=== PATIENT | female | born 1955 | race Caucasian/White ===

== ENCOUNTER → 2019-04-17 08:08 | Outpatient (BNVA) | payer MEDICARE, MEDICAID, SELFPAY | PROVIDERS: Family Provider Family Medicine; PCP Family Medicine; Visit Provider Nurse Practitioner Psychiatric/Mental Health | DX: F33.0 Major depressive disorder, recurrent, mild (principal); F41.1 Generalized anxiety disorder; F43.12 Post-traumatic stress disorder, chronic; Z63.4 Disappearance and death of family member | CPT/HCPCS: 99214 ==

== ENCOUNTER → 2019-08-08 08:09 | Outpatient (BNVA) | payer MEDICARE, MEDICAID, SELFPAY | PROVIDERS: Family Provider Family Medicine; PCP Family Medicine; Visit Provider Nurse Practitioner Psychiatric/Mental Health | DX: F33.0 Major depressive disorder, recurrent, mild (principal); F41.1 Generalized anxiety disorder; F43.12 Post-traumatic stress disorder, chronic; Z63.4 Disappearance and death of family member | CPT/HCPCS: 99214 ==

== ENCOUNTER → 2019-08-31 08:16 | Day surgery (SDC) | payer MEDICARE, MEDICAID, SELFPAY ==
[2019-08-30 14:47] VITALS: BMI 30.8
[2019-08-31 08:44] VITALS: BP 114/68; PULSE 89; RESP 18; TEMP 36.6; O2SAT 96
[2019-08-31] MEDS: sodium chloride 0.9% 1,000 ML 30 ML IV (08:48)
--- NOTE | 2019-08-31 09:27 | ANES.PREANE2 ---
Pre-Anesthetic Assessment Pre-Anesthetic Assessment: Height/Weight: Height 1.6 m Weight 78.925 kg Temp Pulse Resp BP Pulse Ox 98 F 89 18 114/68 96 08/31/19 08:44 08/31/19 08:44 08/31/19 08:44 08/31/19 08:44 08/31/19 08:44 Preop Diagnosis: lumbar spinal stenosis Proposed Procedure: Operation Date: 08/31/19 09:30 Proposed Procedures p Dorsal Column Stimulator Insertion 37448 M48.062(Not Applicable) - Chris Landa MD Familial anesthetic complications: awareness during her hysterectomy - could hear everything before they intubated her Last intake: Intake Last Liquid Date 08/30/19 Last Solid Date 08/30/19 Social: Social History: No alcohol and No tobacco Exam: Pre-Anes Outpt Exam: alert, oriented x 3, clear to auscultation bilaterally and regular rate & rhythm Airway: Cervical ROM: WNL MP: 2 Dentition: Chipped and Full Pulmonary: Pulmonary: COPD : : None reported Hepatic: Hepatic: None reported GI: GI: None reported Metabolic: Metabolic: None reported Musc/skel: Musc/skel: None reported Neuropsych: Neuropsych: None reported Anesthetic Plan: ASA status: 2 Anesthesia: MAC Other: Patient informed of risk for awareness again during MAC Risk of > 500 ml blood loss (7ml/kg in children): No Meds/Allergies Current Medications: Current Medications Generic Name Dose Route Start Last Admin Trade Name Freq PRN Reason Stop Dose Admin Sodium Chloride 1,000 mls @ 30 ml s/hr 08/31/19 08:15 08/31/19 08:48 Sodium Chloride 0.9% IV 09/01/19 08:14 30 mls/hr .Q24H ANDERSON Administration PFSH Anesthesia PFSH: Medical History Generalized anxiety disorder Major depressive disorder, recurrent, mild Post-traumatic stress disorder, chronic Spinal stenosis, lumbar region, with neurogenic claudication Spondylolisthesis, lumbar region Surgical History H/O repair of rotator cuff History of hysterectomy S/P cervical spinal fusion C6-7 ACDFF, Dr Landa 2009 Social History (Updated 07/25/19 @ 13:00 by Kylah Mishra LPN) Smoking and tobacco status: former smoker Alcohol intake: never Lives independently: Yes Marital status: Current occupational status: disabled History of recent travel: No Data Anesthesia Cardiac Studies: No Data to Display
[2019-08-31 10:04] LABS: Amphetamines Screen Urine Positive (Negative); Barbiturates Screen Urine Negative (Negative); Benzodiazepines Screen Urine Positive (Negative); Cocaine Screen Urine Negative (Negative); Opiate Screen Urine Positive (Negative); PCP Screen Urine Negative (Negative); THC Screen Urine Negative (Negative)
--- NOTE | 2019-08-31 13:43 | SUR.PREOP ---
surgery postponed due to urine drug test results
--- NOTE | 2019-09-07 | XR_ITS ---
WS: [id number] C-ARM RADIOGRAPHS THORAX; 2 IMAGES HISTORY: dcs placement COMPARISON: None available. Intraoperative imaging during dorsal column stimulator placement. Stimulator projects over the T7-T8 vertebral bodies. XR/XR thoracic spine 1ort [id number] IMPRESSION: Intraoperative imaging during dorsal column stimulator placement.
== END ==
PROVIDERS: Anesthesiology; PCP Family Medicine; Visit Provider Specialist
DX: M48.061 Spinal stenosis, lumbar region without neurogenic claudication (principal); Z53.09 Procedure and treatment not carried out because of other contraindication
CPT/HCPCS: 72020; 80306; 96365; J7030

== ENCOUNTER 2019-09-01 16:11 | Emergency (ER) | payer MEDICARE, MEDICAID, SELFPAY ==
[2019-09-01 16:41] VITALS: BP 101/63; PULSE 79; RESP 18; TEMP 36.7; O2SAT 96; BMI 29.5
--- NOTE | 2019-09-01 17:57 | W.ED.BACK ---
HPI - Back Pain/Injury General: Chief Complaint: Back Pain/Injury Stated Complaint: acute on chronic back pain Time Seen by Provider: 09/01/19 17:56 Source: patient Mode of arrival: ambulatory Limitations: no limitations History of Present Illness: HPI Narrative: Patient comes in with increased back pain and difficulty sleeping at night for the last 3 days. Patient has chronic back pain and routinely sees Dr. Downing for pain specialist, Dr. Ashley for primary care. Patient was supposed to see Dr. Landa and have further treatment but tested positive for a amphetamine and was recommended and could not have surgery done for a what she calls a paddle or nerve stimulator. Patient is ambulatory and appears well complaints of right-sided low back pain. Review of Systems General: Reports: 10 or more systems reviewed and unremarkable except in HPI and below Musc: Reports: back pain PFS ED PFSH: Medical History (Updated 09/01/19 @ 18:06 by KASSIE Bhandari) Generalized anxiety disorder Major depressive disorder, recurrent, mild Post-traumatic stress disorder, chronic Spinal stenosis, lumbar region, with neurogenic claudication Spondylolisthesis, lumbar region Surgical History H/O repair of rotator cuff History of hysterectomy S/P cervical spinal fusion C6-7 ACDFF, Dr Landa 2009 Social History (Updated 07/25/19 @ 13:00 by Kylah Mishra LPN) Smoking and tobacco status: never smoked Alcohol intake: never Lives independently: Yes Marital status: Current occupational status: disabled History of recent travel: No Physical Exam Const: COMMON NORMALS: no acute distress and patient oriented x3 GENERAL APPEARANCE: cooperative HENMT: COMMON NORMALS: normocephalic, TM's normal bilaterally and Normal external nose present HEAD & SCALP: normal to inspection and normocephalic NOSE: Normal external nose present TYMPANIC MEMBRANE: TM's normal bilaterally MOUTH: Normal oral and palatal mucosa present THROAT: posterior oropharynx normal Eye: GENERAL EYE: appearance normal, both eyes and all related structures Neck/C-Spine: COMMON NORMALS: full ROM Lymph: LYMPHATIC: no lymphadenopathy noted Chest: COMMONS NORMALS: normal inspection of the chest Resp: COMMON NORMALS: normal respiratory effort EFFORT & INSPECTION: Yes able to speak in complete sentences Cardio: COMMON NORMALS: regular rate and regular rhythm RATE: regular rate RHYTHM: regular rhythm GI: COMMON NORMALS: non-tender : COMMON NORMALS: Yes no CVA tenderness BLADDER/KIDNEY EXAM: Yes no CVA tenderness Back/Pelvis: COMMON NORMALS: no CVA tenderness and thoracic and lumbar spine normal to inspection Extremity: COMMON NORMALS: normal to inspection Neuro: COMMON NORMALS: patient oriented x3 and moves all extremities Psych: COMMON NORMALS: mental status grossly normal and cooperative Skin: COMMON NORMALS: no rashes or lesions noted GENERAL SKIN EXAM: no rashes or lesions noted Course Vital Signs: Vital signs: Vital Signs Temperature 98.1 F 09/01/19 16:41 Pulse Rate 79 09/01/19 16:41 Respiratory Rate 18 09/01/19 16:41 Blood Pressure 101/63 09/01/19 16:41 Pulse Oximetry 96 09/01/19 16:41 MDM - Back Pain/Injury MDM Narrative: Medical decision making narrative: Patient comes in for increased back pain. On exam patient appears well. Patient has some muscle tightness and tenderness in the right lower back. Patient is ambulatory. Vital signs are normal. Differential diagnosis includes lumbar radiculopathy, facet arthropathy, intervertebral disc disease. Reviewed exam with patient recommended treatment with a dose of dexamethasone for inflammation. Encourage continuing routine medications as directed and to only take medications as ordered. Patient reported understanding agreed to plan with recommendations for follow-up with primary care and specialist. Discharge Plan Discharge Patient Disposition: Home, Self-Care Clinical Impression: Spondylolisthesis, lumbar region Condition: Stable Prescriptions: No Action budesonide-formoterol [Symbicort] 80-4.5 mcg/actuation HFA aerosol inhaler 2 puff INHALATION BID RF: 0 cyclobenzaprine 10 mg tablet 10 mg PO BID RF: 0 melatonin 5 mg capsule 10 mg PO .QHS RF: 0 methocarbamol 750 mg tablet 750 mg PO .QHS RF: 0 naproxen 500 mg tablet 500 mg PO DAILY PRN (Reason: Pain) RF: 0 gabapentin 300 mg capsule 400 mg PO TID RF: 0 estradiol [Vivelle-Dot] 0.1 mg/24 hr patch semiweekly 1 patch TRANSDERMA .twice weekly RF: 0 hydrocodone-acetaminophen 7.5-325 mg tablet 1 tab PO Q6H PRN (Reason: pain) RF: 0 albuterol sulfate [Ventolin HFA] 90 mcg/actuation HFA aerosol inhaler 1 inh INHALATION ONCE RF: 0 Cosentyx 150 mg/mL syringe 150 mg SUBCUT .monthly RF: 0 Linzess 290 mcg capsule 290 mcg PO QAM RF: 0 bupropion HCl [Wellbutrin XL] 300 mg tablet extended release 24 hr 300 mg PO QAM Qty: 90 RF: 2 topiramate [Topamax] 100 mg tablet 100 mg PO QAM Qty: 90 RF: 2 diazepam [Valium] 10 mg tablet 10 mg PO TID PRN (Reason: anxiety) Qty: 90 RF: 3 Incruse Ellipta 62.5 mcg/actuation blister with device 1 mcg INHALATION BEDTIME RF: 0 Discharge Orders: Discharge Order (Routine); Ordered 09/01/19 Ordered By: Aman Freeman Referrals: Yani Ashley MD [Primary Care Provider] - Discharge Diet: Usual diet Discharge Activity: Increase activity as tolerated Patient Instructions: Back Pain (ED) Activity Restrictions/Additional Instructions: Increase activity as tolerated. Gentle stretching and range of motion exercises. Drink plenty of water with medications. Continue routine medications as directed. You were given a dose of dexamethasone which will help decrease inflammation and hopefully help improve the symptoms you are having. Follow-up with Dr. Landa's office for rescheduling of appointment and further treatment. Return to the ER for high fever or worsening symptoms. Coding Level of Care Code ED [employer] Consultant for Cate Hamilton Exam Comprehensive
[2019-09-01] MEDS: orphenadrine 30 mg/mL Inj 2 mL 60 MG IM (19:40)
[2019-09-01] MEDS: ketorolac 30 mg/mL INJ IM (19:40)
[2019-09-01] MEDS: dexamethasone 10 mg/mL INJ IM (19:43)
[2019-09-01 19:56] VITALS: BP 104/68; PULSE 78; RESP 18; O2SAT 99
--- NOTE | 2019-09-01 20:01 | PC.NURSE ---
PAtient assessment reviewed and verified by RN
--- NOTE | 2019-09-05 09:40 | DCPLANNER ---
Patient is to follow up with Dr. Landa. marketing programs manager called the office of Dr. Landa, spoke with [place], gave clinic patients information. marketing programs manager was told that patients information would be printed and given to Rich for review. Clinic will call case management specialist and patient with appointment information.
--- NOTE | 2019-09-08 13:27 | DCPLANNER ---
Patient has a follow up appointment scheduled for patient with Dr. Landa on , September 21, 2019 at 9:00. Clinic will call patient with appointment information.
--- NOTE | 2019-09-28 13:26 | DCPLANNER ---
Patient attended appointment scheduled for 09.21.[address] Landa.
== END 2019-09-01 19:56 | disposition home or self-care (01) ==
PROVIDERS: Emergency Provider Nurse Practitioner Family; PCP Family Medicine
DX: M43.16 Spondylolisthesis, lumbar region (principal)
CPT/HCPCS: 12345; 96372; 99281; 99283; J1100; J1885; J2360

== ENCOUNTER 2019-09-03 12:46 | Emergency (ER) | payer MEDICARE, MEDICAID, SELFPAY ==
[2019-09-03 12:47] VITALS: BP 108/69; PULSE 82; RESP 18; TEMP 36.7; O2SAT 93; BMI 29.5
[2019-09-03 12:56] VITALS: BP 108/69; PULSE 82; RESP 18; O2SAT 95
--- NOTE | 2019-09-03 13:17 | ED_ITS ---
HPI - Back Pain/Injury General: Chief Complaint: Back Pain/Injury Stated Complaint: BACK PAIN Time Seen by Provider: 09/03/19 12:54 History of Present Illness: HPI Narrative: Patient is a 63-year-old female who presents by ambulance today. She called the ambulance due to back pain. She has had back pain she said for years but has a different type of back pain now since May. She sees Dr. Downing for pain management and she is on gabapentin, hydrocodone, Flexeril. She also has prescriptions for diazepam and methocarbamol. She also takes Naprosyn. She was scheduled for surgery with Dr. Landa to have what sounds like a spinal stimulator placed. That was scheduled for but she tested positive for amphetamine and the surgery was canceled. She said she had taken a Phentermine diet pill. She tells me she took a hydrocodone and a Flexeril at 6 AM today. she says she has not taken any other pain medicine today. I asked her what we could do to help and she said she wanted pain medicine. I asked her why she did not take her own pain medicine and she said she does not like to take it too many times a day. She is allowed to take it up to 4 times a day but only takes it twice. She said that when she is at home she sleeps on her couch which has a footstool. She said as long as she sleeps like that she does not wake up with back pain. Since she has been staying with her daughter due to her scheduled surgery she has been sleep ing on a regular soft mattress and is waking up with pain. We discussed how it may be she could sleep on the couch with a footstool as she does at home in order to control her symptoms. elicited complaint: back pain Pertinent past history: prior back pain Onset (ago): year(s) Timing: constant Severity: severe Similar Symptoms Previously: Yes Quality: sharp Location: lumbar spine and right lower back Associated symptoms: Reports no associated symptoms; Deny difficulty walking Review of Systems Musc: Reports: back pain Neuro: Denies: numbness in extremities, weakness in extremities, lack of coordination, difficulty walking, frequent falls or dizziness [facility] ED PFSH: Medical History Generalized anxiety disorder Major depressive disorder, recurrent, mild Post-traumatic stress disorder, chronic Spinal stenosis, lumbar region, with neurogenic claudication Spondylolisthesis, lumbar region Surgical History H/O repair of rotator cuff History of hysterectomy S/P cervical spinal fusion C6-7 Dr Cordell ANGEL 2009 Social History Smoking and tobacco status: current every day smoker Alcohol intake: never Lives independently: Yes Marital status: Current occupational status: disabled History of recent travel: No Physical Exam Const: COMMON NORMALS: no acute distress, patient oriented x3, no limitations and alert GENERAL APPEARANCE: cooperative and comfortable HENMT: HEAD & SCALP: normal to inspection FACE & SINUS: normal facial exam Eye: GENERAL EYE: appearance normal, both eyes and all related structures Neck/C-Spine: COMMON NORMALS: supple, no meningeal signs and no JVD Chest: COMMONS NORMALS: normal inspection of the chest Resp: COMMON NORMALS: normal respiratory effort, No use of accessory muscles and clear to auscultation bilaterally AUSCULTATION: clear to auscultation bilaterally Cardio: COMMON NORMALS: no JVD, regular rate, regular rhythm and No murmurs present (Cardio) RATE: regular rate RHYTHM: regular rhythm GI: COMMON NORMALS: Normal to inspection, nondistended, normoactive bowel sounds present, Soft to palpation and non-tender INSPECTION: Yes normal to inspection AUSCULTATION: Yes normoactive bowel sounds PALPATION: Yes Soft to palpation Back/Pelvis: COMMON NORMALS: thoracic and lumbar spine normal to inspection Extremity: COMMON NORMALS: normal to inspection Neuro: COMMON NORMALS: patient oriented x3, moves all extremities, no focal motor deficits and no sensory deficits noted SENSORIUM/ORIENTATION: Yes alert MENINGEAL SIGNS: Yes no meningeal signs MOTOR EXAM: 5/5 motor strength present throughout DEEP TENDON REFLEXES: Right patellar reflex intensity grade: 2+ and Left patellar reflex intensity grade: 2+ Psych: COMMON NORMALS: mental status grossly normal, cooperative and normal affect Skin: COMMON NORMALS: no rashes or lesions noted and turgor normal GENERAL SKIN EXAM: no rashes or lesions noted and turgor normal Course ED course: Patient has pain medication at home that she did not take. She instead called the ambulance to come in. She told me that the pain medicine wo rks when she takes it. She also knows of a comfortable sleeping position that does not cause her back pain. We discussed how she might be able to adapt her daughter's couch to let her sleep like that. She says that she came in because she wants to have her back surgery. It is Wednesday and Dr. Landa is not on-call today nor would this be an emergent reason for surgery. I am going to discharge her home with instructions to follow-up with Dr. Downing and Dr. Landa. Reevaluation(s): Reevaluation #1: The patient was not happy with my treatment decisions. I went back to talk to her again prior to discharge and she would not speak to me. Time: 14:51 Vital Signs: Vital signs: Vital Signs Temperature 98.0 F 09/03/19 12:47 Pulse Rate 73 09/03/19 13:30 Respiratory Rate 16 09/03/19 13:30 Blood Pressure 94/73 09/03/19 13:30 Pulse Oximetry 96 09/03/19 13:30 MDM - Back Pain/Injury MDM Narrative: Medical decision making narrative: Chronic back pain. No new neuro findings. She said the pain in her right lower back is new but then she also told me that it was the pain for which she was going to have the procedure. She has follow-up with pain management as well as neurosurgery. She has quite a selection of medication to manage pain at home. We discussed non- pharmacological treatment of back pain. I do not think she needs any further work-up in the ED today. She said she got a steroid shot last time she was here but I do not think that is appropriate to repeat today. Discharge Plan Discharge Patient Disposition: Home, Self-Care Clinical Impression: Chronic back pain Qualifiers: Back pain location: low back pain Back pain laterality: right Sciatica presence: without sciatica Qualified Code(s): M54.5 - Low back pain Condition: Stable Prescriptions: No Action budesonide-formoterol [Symbicort] 80-4.5 mcg/actuation HFA aerosol inhaler 2 puff INHALATION BID RF: 0 cyclobenzaprine 10 mg tablet 10 mg PO BID RF: 0 melatonin 5 mg capsule 10 mg PO .QHS RF: 0 methocarbamol 750 mg tablet 750 mg PO .QHS RF: 0 naproxen 500 mg tablet 500 mg PO DAILY PRN (Reason: Pain) RF: 0 gabapentin 300 mg capsule 400 mg PO TID RF: 0 estradiol [Vivelle-Dot] 0.1 mg/24 hr patch semiweekly 1 patch TRANSDERMA .twice weekly RF: 0 hydrocodone-acetaminophen 7.5-325 mg tablet 1 tab PO Q6H PRN (Reason: pain) RF: 0 albuterol sulfate [Ventolin HFA] 90 mcg/actuation HFA aerosol inhaler 1 inh INHALATION ONCE RF: 0 Cosentyx 150 mg/mL syringe 150 mg SUBCUT .monthly RF: 0 Linzess 290 mcg capsule 290 mcg PO QAM RF: 0 bupropion HCl [Wellbutrin XL] 300 mg tablet extended release 24 hr 300 mg PO QAM Qty: 90 RF: 2 topiramate [Topamax] 100 mg tablet 100 mg PO QAM Qty: 90 RF: 2 diazepam [Valium] 10 mg tablet 10 mg PO TID PRN (Reason: anxiety) Qty: 90 RF: 3 Incruse Ellipta 62.5 mcg/actuation blister with device 1 mcg INHALATION BEDTIME RF: 0 Referrals: Yani Ashley MD [Primary Care Provider] - Discharge Diet: Usual diet Discharge Activity: Resume usual activity Patient Instructions: Acute Low Back Pain (ED) Activity Restrictions/Additional Instructions: Follow-up with your spray painter helper. Coding Level of Care Code ED Carbider for Cate Fwd Exam Comprehensive
[2019-09-03 13:30] VITALS: BP 94/73; PULSE 73; RESP 16; O2SAT 96
[2019-09-03 15:01] VITALS: BP 104/55; PULSE 68; RESP 16; O2SAT 100
== END 2019-09-03 15:02 | disposition home or self-care (01) ==
PROVIDERS: Emergency Provider Emergency Medicine; PCP Family Medicine
DX: G89.29 Other chronic pain (principal); M54.5 Low back pain; F17.210 Nicotine dependence, cigarettes, uncomplicated
CPT/HCPCS: 12345; 99282

== ENCOUNTER 2019-09-07 10:32 | Observation (INO) | payer MEDICARE, MEDICAID, SELFPAY ==
[2019-09-07] VITALS (17 sets, daily range): BP systolic 90–126; BP diastolic 55–79; PULSE 77–93; RESP 14–18; TEMP 36.4–36.8; O2SAT 93–100; BMI 29.5
--- NOTE | 2019-09-07 | SCC_ITS ---
Procedure Done: 1. Thoracic laminotomy with placement of intraspinal, epidural paddle electrode arrays. 2. Placement of subcutaneous programmable pulse generator. 14.9 seconds of fluoroscopic guidance, for a cumulative dose of 13.74 mGy, was provided to Dr. Landa by the radiology department. C-arm images of the thoracic spine were saved for the patient's permanent record. [facility]
[2019-09-07 07:18] LABS: Amphetamines Screen Urine Negative (Negative); Barbiturates Screen Urine Negative (Negative); Benzodiazepines Screen Urine Positive (Negative); Cocaine Screen Urine Negative (Negative); Opiate Screen Urine Positive (Negative); PCP Screen Urine Negative (Negative); THC Screen Urine Negative (Negative)
[2019-09-07] MEDS: sodium chloride 0.9% 1,000 ML 30 ML IV (07:32)
[2019-09-07] MEDS: vancomycin 1,000 MG in sodium chloride 0.9% 250 ML 250 MG IV (07:33)
--- NOTE | 2019-09-07 07:40 | W.PM.OPSUD ---
Surgery/Procedure H&P Update DATE OF PROCEDURE: September 07, 2019 DATE H&P PERFORMED: 08/28/19 H&P UPDATE INFORMATION: I have reviewed H&P completed within last 30 days and H&P to be scanned into chart PREOP DIAGNOSIS: Lumbar Spinal Stenosis PRIMARY INDICATION FOR PROCEDURE: Pain PLANNED PROCEDURE: Operation Date: 09/07/19 08:00 Proposed Procedures Spinal Cord Stimulator Insertion via Thoracic laminotomy/laminectomy, placement of subcutaneous programmable pulse generator ([id number]) spinal stenosis, lumbar region, with neurogenic claudication (M48.062)(Not Applicable) - Chris Landa MD
--- NOTE | 2019-09-07 07:55 | P.OP_ITS ---
Brief Operative Note: Date of procedure: 09/07/19 Pre-op diagnosis: Lumbar spinal stenosis Post-op diagnosis: same Procedure Done: Thoracic laminotomy for placement of intraspinal epidural paddle electrode arrays. Placement of subcutaneous programmable pulse generator. Surgeon: Chris Landa Estimated blood loss (mL): 10 Complications: None. Post-op Plan: PACU, then ornelas. Condition: stable Disposition: PACU Coding Level of Care Code Acute Supervisor Customer Records Division for Cate Hamilton
[2019-09-07] MEDS: thrombin 5,000 unit SDV 5000 UNIT XX (08:49)
--- NOTE | 2019-09-07 09:45 | SUR.OPER ---
Family Notified Of Patient's Status Via Phone.
--- NOTE | 2019-09-07 11:11 | PC.CHAP ---
Pastoral Care Encounter/Spiritual Assessment Type of Contact [] Declined entomology professor visit [] Patient/Family/Request visit [] Outpatient visit [] Follow-up visit [] Physician referral [] Code/Alert [x] Routine visit [] Staff referral [] Actively dying [] Patient sleeping [] Family support [] [] Out of room [] Palliative care [] [] Receiving care in room [] Pre-surgical visit [] Trauma [] Long length of stay [] ICU visit [] Other: Relational/Emotional Strength [x] Patient feels connected with others/family/visitors/staff [] Distress [] Loneliness/isolation [] Abandonment Spirituality of Patient [x] Person of Herlinda [x] Attends Holiness of their Herlinda [x] Believes in Prayer [x] Reads Bible or Yarsanism materials [] There are Spiritual issues to be addressed Cotton Picker Interventions [x] Prayer [x] Active listening [x] Non-anxious presence [x] Spiritual/emotional support [] Crisis/trauma care [x] Spiritual counseling [] Bereavement support [] Provided bereavement packet [] Provided Bible/devotional materials [] Provided toy/stuffed animal, coloring book to patient or family member [] Provided Communion [] Anointing/[place] [] Salvation [x] Completed spiritual assessment [] Other: Impact on Illness or Injury [] Angry [] Fearful [] Anxious [] Often cries [] Exhaustion [] Unable to work [] Unable to attend mandaeism [] Unable to walk/stand [] Unable to read [] Unable to drive [] Unable to eat/drink [] Unable to sleep [] Unable to be with family [] Patient intubated [x] Other: n/a Summary Patient is strong in her herlinda to [employer]. Time spent with patient 10 minutes
[2019-09-07] MEDS: HYDROcodone-acetaminophen 10-325 mg Tablet 1 TAB PO ×3 (11:37→18:19)
[2019-09-07] MEDS: lactated ringers 1,000 ML 90 ML IV (11:39)
[2019-09-07] MEDS: HYDROmorphone 1 mg/mL INJ 1 mL 0.5 MG IVP ×2 (11:39→13:19)
--- NOTE | 2019-09-07 13:00 | P.OP_ITS ---
Operative Report Date of procedure: September 07, 2019 Pre-op Diagnosis: Lumbar Spinal Stenosis Post-op diagnosis: same Procedure Done: 1. Thoracic laminotomy with placement of intraspinal, epidural paddle electrode arrays. 2. Placement of subcutaneous programmable pulse generator. Implants: [employer] CoverEdge 32, 70 cm, 4 x 8 surgical brace maker. [employer] Spectra WaveWriter pulse generator. Pathology: none sent Surgeon: Crhis Landa Anesthesia: MAC Estimated blood loss (mL): 10 IV fluids (mL): 700 Complications: None. Condition: stable Disposition: PACU Brief History: The patient is a 63-year-old female. She has symptomatic, radiographically confirmed lumbar disc/joint disease, with associated spondylolisthesis and spinal stenosis. She complained of low back and hip pain, right > left. Her workup included thoracic and lumbar spine imaging. Conservative treatment trials failed to provide adequate lasting symptom relief. She obtained marked relief of chronic pain during a percutaneous trial of thoracic spinal cord stimulation. After review of the diagnostic and treatment options with the risks/potential benefits/rationale for each, the patient requested to proceed with placement of epidural paddle electrode arrays and a subcutaneous programmable pulse generator for chronic spinal cord stimulation therapy. Procedure: After routine preoperative evaluation and informed consent were obtained, the patient was taken to the Operating Room and positioned prone on the operating table. Chest and pelvic bolsters were positioned to ensure the abdomen was decompressed. All pressure points were padded. The patient reported the position to be comfortable. She was maintained under varying levels of intravenous sedation by Anesthesia personnel. The planned right flank pulse generator placement incision was marked with a skin marker. A planned midline posterior thoracic incision was likewise marked, after intraoperative localization with fluoroscopy. The patient's lead location during the successful percutaneous trial was utilized to guide placement for the permanent implant. The posterior thorax and flank areas were scrubbed with Betadine and prepped with DuraPrep. Sterile towels and drapes were applied, and an [place] surgical barrier was plac ed. The proposed midline posterior thoracic incision was infiltrated with 1% Xylocaine with epinephrine. A skin incision was made and carried down into the subcutaneous tissues. The deep fascial plane was identified and divided in the midline. A right-sided subperiosteal dissection was carried down along the lamina at what appeared by intraoperative fluoroscopy to be T8/T9. Deep self- retaining retractors were placed to maximize the operative exposure. A laminotomy was fashioned with Jacindaon rongeurs. Ligamentum flavum was resected at the base of the laminotomy site. The hockey-stick dural separator was advanced into the dorsal epidural space, with some resistance to midline placement encountered. The [employer] CoverEdge 32 surgical brace maker was then advanced into the dorsal epidural space. Intraoperative fluoroscopy suggested a mildly angled dorsal epidural lead position, with the cephalad extent of the lead approximating the top of T7. Anesthesia personnel diminished the patient's sedation until she was awake and conversant. The lead tails were connected to extension cables, and intraoperative spinal cord stimulation was performed. The patient reported good paresthesia coverage of her chronic pain sites. Lead impedances were good. The patient's sedation was deepened. The wound was copiously irrigated with sterile saline and antibiotic irrigation. The fascia was closed utilizing 2-0 Vicryl Plus in a simple interrupted fashion. CLIK lead anchors were placed over 2 of the 4 lead tails, and secured at the fascial entry point with Fixate suture devices. The lead - anchor - fascial interfaces were manipulated and found to be secure. Intraoperative fluoroscopy verified a stable lead position. Strain relief loops of the lead tails were fashioned within the subcutaneous space at the thoracic incision site. The right flank incision site was prepared by infiltration with 1% Xylocaine with epinephrine. An incision was then made, and a subcutaneous pocket was created of adequate size to accommodate the pulse generator. The subcutaneous tunneling tool was utilized to create a subcutaneous passage between the thoracic and right flank incisions. Lead tails were advanced through the subcutaneous tunnel utilizing the tunneling tool. The lead tails were advanced into the appropriate ports on the [employer] Spectra WaveWriterr pulse generator. An imped ance check demonstrated no lead faults. The connection sites were secured with set screws and the torque wrench. The connection sites were manipulated and found to be secure. The right flank subcutaneous pocket and the thoracic incision site were copiously irrigated with antibiotic irrigation. Hemostasis was ensured. The pulse generator was placed within the right flank subcutaneous pocket, with excess lead coiled deep/adjacent to the device. The pulse generator was anchored to the superficial fascia with a single Silk suture. The site was again irrigated with antibiotic irrigation. Wound closure was performed in multiple layers with 2-0 Vicryl Plus simple interrupted closure of the dermis at both sites. Intraoperative fluoroscopy verified a stable lead position. Final skin closure was performed at both incision sites with 3-0 Vicryl Plus in a running subcuticular pattern. Steri-Strips were applied, and sterile dressings were placed. The patient was then rotated onto the Recovery Room cart in the supine position. She tolerated the procedure well. All sponge, needle and instrument counts were correct at the completion of the procedure.
[2019-09-07] MEDS: gabapentin 400 mg Capsule PO ×2 (15:16→20:38)
[2019-09-07] MEDS: morphine 4 mg/mL SDV 1 mL 2 MG IVP (15:18)
--- NOTE | 2019-09-07 17:00 | PC.NURSE ---
CBI Patient had 1500ml of CBI instilled with 1800ml out, patient has strawberry-mendoza colored urine, bladder irrigated once due to fullness feeling and got small amount of blood clots. Patient stated he had relief of pressure after irrigation. CBI continues at moderate flow, will continue to monitor at this time.
[2019-09-07] MEDS: docusate sodium 100 mg Capsule PO (17:42)
[2019-09-07] MEDS: ketorolac 30 mg/mL INJ 15 MG IVP (17:43)
[2019-09-07] MEDS: cyclobenzaprine 10 mg Tablet PO (17:43)
[2019-09-07] MEDS: methocarbamol 750 mg Tablet PO (20:38)
--- NOTE | 2019-09-07 23:10 | PM.PN ---
Subjective Subjective: Interval history: Sore. Medications: Reviewed: Yes Vitals/I&O/Wt Last Vital Signs Temp 98.0 F 09/07/19 19:35 Pulse 78 09/07/19 19:35 Resp 18 09/07/19 19:35 BP 90/55 09/07/19 19:35 Pulse Ox 93 09/07/19 19:35 09/07/19 09/07/19 09/08/19 14:59 22:59 06:59 Intake Total 660 / 660 410 / 1070 Output Total 1000 / 1010 Balance 650 / 650 -590 / 60 Weight last 48 hrs Weight 167 lb Physical Exam Const: COMMON NORMALS: no acute distress GENERAL APPEARANCE: cooperative and comfortable Neck/C-Spine: COMMON NORMALS: supple Resp: COMMON NORMALS: normal respiratory effort EFFORT & INSPECTION: No tachypneic Back/Pelvis: BACK IMAGE (FEMALE): 1. Surgical site dressing 2. Surgical site dressing Extremity: COMMON NORMALS: no clubbing, cyanosis or edema Neuro: COMMON NORMALS: moves all extremities Psych: COMMON NORMALS: mental status grossly normal and speech normal ATTITUDE: Yes calm and Yes engaged ACTIVITY/MOTOR BEHAVIOR: Yes appropriate eye contact SPEECH: Yes normal speech MOOD & AFFECT: Yes euthymic mood Skin: WOUNDS: Yes surgical site (Surgical sites without erythema or active drainage. Dressings changed.) Data Other Xray: Radiologist's impression: Intraoperative imaging during dorsal column stimulator placement. Stimulator projects over the T7-T8 vertebral bodies. A&P Assessment and plan (1) Spinal stenosis, lumbar region, with neurogenic claudication: Patient is doing well after thoracic spinal cord stimulator implantation performed earlier today. Plan completion of postop IV antibiotic doses, with discharge home in AM. Status: Acute Attestations Medical Necessity Statement*: Patient is appropriate for in-hospital management following surgical intervention for spinal cord stimulator placement earlier today. Coding Level of Care Code Acute Training Intern for [facility] Fwd Exam Detailed Diagnoses Spinal stenosis, lumbar region, with neurogenic claudication M48.062 Comment postop global
[2019-09-08] VITALS (8 sets, daily range): BP systolic 97–120; BP diastolic 64–72; PULSE 76–107; RESP 14–18; TEMP 36.9–38.4; O2SAT 94–97
[2019-09-08] MEDS: lactated ringers 1,000 ML 90 ML IV (00:02)
[2019-09-08] MEDS: HYDROcodone-acetaminophen 10-325 mg Tablet 1 TAB PO ×2 (01:15→06:29)
[2019-09-08] MEDS: topiramate 100 mg Tablet PO (06:29)
[2019-09-08] MEDS: buPROPion XL (24 HR) 300 mg Tablet PO (06:29)
[2019-09-08] MEDS: acetaminophen 325 mg Tablet 650 MG PO (07:52)
[2019-09-08] MEDS: docusate sodium 100 mg Capsule PO (07:52)
[2019-09-08] MEDS: cyclobenzaprine 10 mg Tablet PO (07:52)
[2019-09-08] MEDS: gabapentin 400 mg Capsule PO (07:52)
[2019-09-08] MEDS: ketorolac 30 mg/mL INJ 15 MG IVP (07:53)
--- NOTE | 2019-09-08 09:24 | P.DS_ITS ---
Discharge Providers Date of Admission: 09/07/19 10:32 Date of Discharge: September 08, 2019 Attending Provider at Admission: Chris Landa MD Attending Provider at Discharge: Chris Landa MD Primary Care Provider: Yani Ashley MD Diagnoses at Discharge Discharge Diagnosis (1) Spinal stenosis, lumbar region, with neurogenic claudication: Status: Acute Reason for Visit Reason for Visit: Brief History: The patient is a 63-year-old female. She has symptomatic, radiographically confirmed lumbar disc/joint disease, with associated spondylolisthesis and spinal stenosis. She complained of low back and hip pain, right > left. Her workup included thoracic and lumbar spine imaging. Conservative treatment trials failed to provide adequate lasting symptom relief. She obtained marked relief of chronic pain during a percutaneous trial of thoracic spinal cord stimulation. After review of the diagnostic and treatment options with the risks/potential benefits/rationale for each, the patient requested to proceed with placement of epidural paddle electrode arrays and a subcutaneous programmable pulse generator for chronic spinal cord stimulation therapy. Hospital Course Hospital Course: The patient underwent thoracic laminotomy with placement of intraspinal, epidural paddle electrode arrays and placement of subcutaneous programmable pulse generator on 09/07/2019. She tolerated the procedure well, and noted good paresthesia coverage of chronic pain sites with intraoperative stimulation. She completed perioperative intravenous antibiotic doses. She had a low-grade fever on the morning of postoperative day #1. She reported missing her regular albuterol inhaler dosing. Tylenol was administered, and she was seen by Respiratory Therapy. An albuterol nebulizer treatment was performed. She was afebrile, ambulatory, voiding, and tolerating diet prior to discharge home on postoperative day 1. Physical Exam Const: COMMON NORMALS: no acute distress GENERAL APPEARANCE: cooperative and comfortable Neck/C-Spine: COMMON NORMALS: supple and no JVD Resp: COMMON NORMALS: normal respiratory effort EFFORT & INSPECTION: Yes able to speak in complete sentences, No tachypneic and No stridor Cardio: COMMON NORMALS: no JVD Extremity: COMMON NORMALS: no clubbing, cyanosis or edema Neuro: COMMON NORMALS: moves all extremities SPEECH: speech normal Psych: COMMON NORMALS: mental status grossly normal and Normal thought process present ATTITUDE: Yes calm and Yes engaged ACTIVITY/MOTOR BEHAVIOR: Yes appropriate eye contact MOOD & AFFECT: Yes euthymic mood THOUGHT PROCESS: Normal thought process present INSIGHT: Good insight present (Psych) JUDGEMENT: Good judgement present (Psych) Skin: WOUNDS: Yes surgical site (Right flank and midline posterior thoracic surgical site dressings are clean/dry/intact.) Discharge Data Imaging^: Other Xray: Radiologist's impression: Intraoperative imaging during dorsal column stimulator placement. Stimulator projects over the T7-T8 vertebral bodies. Procedures Performed: 1. Thoracic laminotomy and placement of intraspinal, epidural paddle electrode arrays ([employer] CoverEdge 32 surgical endoscopist). 2. Placement of subcutaneous programmable pulse generator ([employer] WaveWriter). 3. Intravenous antibiotics. Vitals: Last Vital Signs Temp 101.1 F H 09/08/19 07:25 Pulse 104 H 09/08/19 09:05 Resp 16 09/08/19 09:05 BP 116/69 09/08/19 07:25 Pulse Ox 95 09/08/19 09:05 Discharge Plan Discharge Patient Disposition: Home, Self-Care Condition: Stable Prescriptions: New hydrocodone-acetaminophen 10-325 mg Tablet 1 tab PO Q4H PRN (Reason: Moderate To Severe Pain) Qty: 35 RF: 0 Continued budesonide-formoterol [Symbicort] 80-4.5 mcg/actuation HFA aerosol inhaler 2 puff INHALATION BID RF: 0 cyclobenzaprine 10 mg tablet 10 mg PO BID RF: 0 melatonin 5 mg capsule 10 mg PO .QHS RF: 0 methocarbamol 750 mg tablet 750 mg PO .QHS RF: 0 naproxen 500 mg tablet 500 mg PO DAILY PRN (Reason: Pain) RF: 0 gabapentin 300 mg capsule 400 mg PO TID RF: 0 estradiol [Vivelle-Dot] 0.1 mg/24 hr patch semiweekly 1 patch TRANSDERMA .twice weekly RF: 0 albuterol sulfate [Ventolin HFA] 90 mcg/actuation HFA aerosol inhaler 1 inh INHALATION ONCE RF: 0 Cosentyx 150 mg/mL syringe 150 mg SUBCUT .monthly RF: 0 Linzess 290 mcg capsule 290 mcg PO QAM RF: 0 bupropion HCl [Wellbutrin XL] 300 mg tablet extended release 24 hr 300 mg PO QAM Qty: 90 RF: 2 topiramate [Topamax] 100 mg tablet 100 mg PO QAM Qty: 90 RF: 2 diazepam [Valium] 10 mg tablet 10 mg PO TID PRN (Reason: anxiety) Qty: 90 RF: 3 Incruse Ellipta 62.5 mcg/actuation blister with device 1 mcg INHALATION BEDTIME RF: 0 phentermine 37.5 mg Capsule 37.5 mg PO DAILY RF: 0 Discontinued hydrocodone-acetaminophen 7.5-325 mg tablet 1 tab PO Q6H PRN (Reason: pain) RF: 0 Discharge Orders: Discharge Order (Routine); Ordered 09/08/19 Ordered By: Chris Landa Referrals: [facility] ([facility]) [Outside] Chris Landa MD [Physician] - 09/21/19 9:00 am Discharge Diet: Usual diet Discharge Activity: Limit activity as instructed Patient Instructions: Hydrocodone/Acetaminophen (By mouth), Spinal Cord Stimulator Placement (DC) Activity Restrictions/Additional Instructions: Activity - No driving until office followup visit - No lifting/pushing/pulling over 10 pounds - Avoid twisting or bending - Walking is encouraged - Home exercise per physical therapist - You may engage in sexual intercourse at any time as long as it is comfortable for you - Check with your doctor before returning to work. Notify your doctor if you develop: - temperature of 101.5 degrees F. or higher - redness or swelling of the incision - Foul drainage - increasing pain - increasing numbness or tingling in the arms or legs - New or increasing problems with vision, balance, memory, speaking, nausea or vomiting Hygiene: - Showering is okay - No tub baths or soaking Other: Remove outer bandage 3 days after surgery. If you have paper strips, leave in place until they fall off on their own. If you have stitches, keep your incision dry until the stitches are removed. Your doctor's office is available to answer any questions from 7 AM to 5:00 PM, Wednesday through at [phone]. After hours, go to the emergency room at [facility] or call 911 for assistance. Discharge Date/Time: 09/08/19 12:02 Discharge Attestations Time Spent in Discharge Care*: other (postop global) Quality Metrics Clinical Quality Measures During this hospital stay, did patient experience: None Coding Level of Care Code Acute Geographic Information Systems Analyst for [employer] Fwd Exam Comprehensive Diagnoses Spinal stenosis, lumbar region, with neurogenic claudication M48.062 Comment postop global
--- NOTE | 2019-09-08 10:19 | PC.CHAP ---
Pastoral Care Encounter/Spiritual Assessment Type of Contact [] Declined linesperson visit [] Patient/Family/Request visit [] Outpatient visit [] Follow-up visit [] Physician referral [] Code/Alert [x] Routine visit [] Staff referral [] Actively dying [] Patient sleeping [] Family support [] [] Out of room [] Palliative care [] [] Receiving care in room [] Pre-surgical visit [] Trauma [] Long length of stay [] ICU visit [] Other: Relational/Emotional Strength [] Patient feels connected with others/family/visitors/staff [] Distress [] Loneliness/isolation [] Abandonment Spirituality of Patient [] Person of Herlinda [] Attends Mosque of their Herlinda [] Believes in Prayer [] Reads Bible or Jehovah'S Witness materials [] There are Spiritual issues to be addressed Busboy Interventions [x] Prayer [] Active listening [] Non-anxious presence [] Spiritual/emotional support [] Crisis/trauma care [] Spiritual counseling [] Bereavement support [] Provided bereavement packet [] Provided Bible/devotional materials [] Provided toy/stuffed animal, coloring book to patient or family member [] Provided Communion [] Anointing/[place] [] Salvation [x] Completed spiritual assessment [] Other: Impact on Illness or Injury [] Angry [] Fearful [] Anxious [] Often cries [] Exhaustion [] Unable to work [] Unable to attend baptism [] Unable to walk/stand [] Unable to read [] Unable to drive [] Unable to eat/drink [] Unable to sleep [] Unable to be with family [] Patient intubated [] Other: Summary Patient resting Time spent with patient 10 min
== END 2019-09-08 12:02 | disposition home or self-care (01) ==
LOC: MEDSURG 10:33
PROVIDERS: Anesthesiology; Admitting Provider Specialist; PCP Family Medicine; Visit Provider Specialist
PROC: (CPT 63655; principal; 2019-09-07 08:00)
DX: M48.062 Spinal stenosis, lumbar region with neurogenic claudication (principal); J44.9 Chronic obstructive pulmonary disease, unspecified; Z79.891 Long term (current) use of opiate analgesic; F17.210 Nicotine dependence, cigarettes, uncomplicated
CPT/HCPCS: 63655; 63685; 12345; 76000; 80306; 94640; 96375; C1778; C1820; C1883; G0378; J0690; J1170; J1885; J2001; J2250; J2270; J2704; J3010; J3370; J3490; J7030; J7050; J7611

== ENCOUNTER 2019-09-27 16:01 | Outpatient (CLI) | payer MEDICARE, MEDICAID, SELFPAY ==
--- NOTE | 2019-09-27 16:24 | XRR_ITS ---
PROCEDURE INFORMATION: Exam: XR Chest, 2 Views Exam date and time: 09/27/2019 4:30 PM Age: 63 years old Clinical indication: Right-sided chest pain; Prior surgery; Surgery date: <1 month; Patient HX: Chest pain since stimulator surgery; Additional info: Atypical chest pain TECHNIQUE: Imaging protocol: XR of the chest Views: 2 views. COMPARISON: No relevant prior studies available. FINDINGS: Lungs: Unremarkable. No consolidation. Pleural space: Unremarkable. No pleural effusion. No pneumothorax. Heart/Mediastinum: Unremarkable. No cardiomegaly. Bones/joints: C-spine hardware. Stimulator lead projects over the mid thoracic spine at the T6-7 level. Rightward thoracic curvature. Old 4th left rib fracture. The bones are otherwise intact. XR/XR chest 2V* [id number] IMPRESSION: No acute finding.
--- NOTE | 2019-09-27 16:24 | XRR_ITS ---
PROCEDURE INFORMATION: Exam: XR Right Ribs Exam date and time: 09/27/2019 4:30 PM Age: 63 years old Clinical indication: Prior surgery; Surgery date: <1 month; Surgery type: Stimulator implant; Patient HX: RT side chest pain since simulator surgery; Additional info: Atypical chest pain TECHNIQUE: Imaging protocol: XR Right ribs. Views: 2 views. COMPARISON: No relevant prior studies available. FINDINGS: Tubes, catheters and devices: Stimulated lead projects over the mid thoracic spine. Stimulator pack projects over the mid right abdomen. The leads appear intact. Bones/joints: C-spine fusion hardware. Rightward thoracic scoliosis. Soft tissues: Normal. XR/XR ribs RT 2V* [id number] IMPRESSION: 1. Radiographically intact thoracic stimulator device and lead. 2. No acute finding.
== END 2019-09-27 16:02 | disposition home or self-care (01) ==
LOC: RADWPI 16:05
PROVIDERS: Family Provider Family Medicine; PCP Family Medicine; Visit Provider Nurse Practitioner Family
DX: R07.89 Other chest pain (principal)
CPT/HCPCS: 71046; 71100

== ENCOUNTER → 2019-12-15 09:29 | Outpatient (BNVA) | payer MEDICARE, MEDICAID, SELFPAY | PROVIDERS: Family Provider Family Medicine; PCP Family Medicine; Visit Provider Nurse Practitioner Psychiatric/Mental Health | DX: F33.0 Major depressive disorder, recurrent, mild (principal); F41.1 Generalized anxiety disorder; F43.12 Post-traumatic stress disorder, chronic; Z63.4 Disappearance and death of family member | CPT/HCPCS: 99213 ==

== ENCOUNTER 2020-04-09 09:37 | Outpatient (CLI) | payer MEDICARE, MEDICAID, SELFPAY ==
--- NOTE | 2020-04-09 09:44 | MM_ITS ---
WS: [id number] Exam: [id number] Date/Time of Exam: 04/09/2020 9:51 AM Reason For Exam: SCREENING VIEWS: MLO and CC views both breasts. Comparison made with prior exam of 10/19/2017. Findings: There was no sign of mass, architectural distortion or suspicious calcification in either breast. Fa tty MM/[id number] Impression: BI-RADS: 2-Benign FOLLOW-UP: 1 Year Follow-up This mammogram was also analyzed by the Computer Aided Detection System R2 Imag e Drafter Heating And Ventilating.
[2020-04-09 11:30] LABS: Blood Urea Nitrogen 12 mg/dL (8-23); Glomerular Filtration Rate 72.2 mL/min (90-130)
== END 2020-04-09 09:38 | disposition home or self-care (01) ==
PROVIDERS: Visit Provider Nurse Practitioner Family
DX: Z12.31 Encounter for screening mammogram for malignant neoplasm of breast (principal); R91.1 Solitary pulmonary nodule
CPT/HCPCS: 36415; 77067; 82565; 84520

== ENCOUNTER 2020-04-09 11:20 | Outpatient (CLI) | payer MEDICARE, MEDICAID, SELFPAY ==
--- NOTE | 2020-04-09 11:30 | CT_ITS ---
WS: [id number] Exam: CT chest w con* [id number] Date/Time of Exam: 04/09/2020 11:30 AM Reason For Exam: LUNG NODULE DLP: 865.[address] scans at [facility] use at least one of these dose optimization techniques: automat ed exposure control; mA and/or kV adjustment per patient size (includes targeted exams where dose is matched to clinical indication); or iterative reconstruction. Comparison 01/12/2019. Stable-appearing 6 mm soft tissue nodule seen in the superior segment of the right lower lobe. No oth er pulmonary nodules are identified. The lungs are clear and fully expanded. No pleural or pericardia l effusion. The airway is patent. The thoracic aorta is normal in caliber. The central pulmonary lorna debora are clear. Coronary artery calcifications noted. No mediastinal or hilar lymphadenopathy. No axi llary lymphadenopathy. Neurostimulator electrodes extend into the posterior aspect of the mid thoraci c spinal canal. No destructive bone lesions are seen. The chest wall is intact. CT sections of the up per abdomen are unremarkable. Lower cervical spine anterior fusion with hardware. CT/CT chest w con* [id number] IMPRESSION: 1. Stable 6 mm soft tissue nodule seen in the superior segment of the right low er lobe likely benign. 2. No new pulmonary masses. No lymphadenopathy in the chest.
[2020-04-09] MEDS: iohexol 300 mg/mL 100 mL Btl IV (12:06)
== END 2020-04-09 11:21 | disposition home or self-care (01) ==
LOC: RADWPI 11:26
PROVIDERS: PCP Nurse Practitioner Family; Visit Provider Nurse Practitioner Family
DX: R91.1 Solitary pulmonary nodule (principal); Z12.31 Encounter for screening mammogram for malignant neoplasm of breast
CPT/HCPCS: 36415; 71260; 77067; 82565; 84520; Q9967